=== PATIENT | male | born 1955 | race Caucasian/White ===

== ENCOUNTER → 2021-03-05 08:32 | Outpatient (CLI) | payer MEDICARE, OTHER, SELFPAY ==
[2021-03-05 09:40] LABS: Absolute Lymphocyte Count 2.92 X10^3/uL (0.83-4.51); Absolute Neutrophil Count 8.1 X10^3/uL (2.0-7.7); Basophil# 0.07 X10^3/uL; Basophil% 0.5 % (0-1); Eosinophil# 0.42 X10^3/uL; Eosinophils% 3.3 % (0-5); Hematocrit 45.8 % (40-54); Hemoglobin 15.2 g/dL (13.0-16.5); Lymphocyte # 2.92 X10^3/ul (0.83-4.51); Lymphocyte % 22.8 % (19-41); Mean Corp Hgb Conc 33.2 g/dL (32-36); Mean Corpuscular Hgb 33.2 pg (27.0-32.0); Monocyte# 1.25 X10^3/uL; Monocyte% 9.8 % (0-10); NRBC Flagged by Analyzer 0 % (0-5); Neutrophil % 63.3 % (47-70); Platelet Count 340 K/mm3 (150-450); RBC Distribution Width CV 16.2 % (11.6-14.6); RBC Distribution Width SD 59.3 fl (35.1-43.9); Red Blood Count 4.58 M/mm3 (4.6-6.2); White Blood Count 12.8 K/mm3 (4.4-11.0)
[2021-03-05 09:50] LABS: Erythrocyte Sedimentation Rate 34 mm/hr (0-20)
[2021-03-05 10:06] LABS: CRP 8.07 mg/L (0.0-3.0)
== END ==
PROVIDERS: PCP Internal Medicine; Visit Provider Physician Assistant
DX: Z96.641 Presence of right artificial hip joint (principal)
CPT/HCPCS: 36415; 85025; 85652; 86140

== ENCOUNTER 2021-03-15 18:14 | Observation (INO) | payer MEDICARE, OTHER, SELFPAY ==
[2021-03-15 18:15] VITALS: BP 112/61; PULSE 59; RESP 16; TEMP 37.4; O2SAT 95; BMI 25.3
--- NOTE | 2021-03-15 19:25 | RAD_ITS ---
STUDY: X-RAY - PELVIS AND RIGHT HIP REASON FOR EXAM: Male, 65 years old. Pain TECHNIQUE: 3 views of the pelvis and hip. COMPARISON: None. FINDINGS: There is a non-specific bowel gas pattern. Normal visualized soft tissue structures. Normal bilateral iliac wings, sacroiliac joints and visualized sacrum. Normal bilateral superior and inferior pubic rami. Normal pubic symphysis. Normal bilateral ischial tuberosities. There is a right hip prosthesis in place. No acute bony injury. RAD/HIP, UNI W/ Pelvis 2-3 Views IMPRESSION: No acute bony injury of the pelvis and hip. Electronically Signed: Mamadou Larios DO at 21:37 EST Tel [phone], Service support ,
--- NOTE | 2021-03-15 19:26 | EX.ED.DYSGE1 ---
HPI History of Present Illness Chief Complaint: Lower Extremity Injury Informant: patient Onset/Context/Timing Onset: Weeks Current Severity: Moderate Maximum Severity: Moderate Narrative Narrative: Patient presents secondary to right hip pain. He has an artificial hip on the right [place] [address] Terry. Patient states 3 weeks ago his hip popped out and spontaneously reduced. He has had pain since that time. He was seen by Bijan Collado at [facility]. Lab work was obtained and he was written for tramadol. He has an appointment to go back and see them on the . Patient reports worsened pain today and difficulty with any ambulation. Pain is now shooting down into his thigh and even down into his calf. He believes he has a pinched nerve. He does live alone. He tried tramadol without any improvement. [facility] Medical History A-fib CAD (coronary artery disease) Diabetes HTN (hypertension) Hyperlipidemia Pancreatitis Home Medications aspirin 81 mg PO DAILY@0800 11/12/14 [History Last Taken Unknown] metformin 500 mg PO BIDCM 11/12/14 [History Last Taken Unknown] niacin 500 mg PO DAILY 11/12/14 [History Last Taken Unknown] nitroglycerin 0.4 mg SUBLINGUAL Q5M PRN 11/12/14 [History Last Taken Unknown] paroxetine HCl [Paxil] 40 mg PO DAILY 11/12/14 [History Last Taken Unknown] trazodone 50 mg PO QHS 11/12/14 [History Last Taken Unknown] insulin aspart U-100 [Novolog Flexpen U-100 Insulin] See Protocol SUBCUT ACHS 11/15/14 [History Last Taken Unknown] multivitamin with folic acid [Thera] 1 tab PO DAILYCM #30 tablet 11/15/14 [Rx Last Taken Unknown] enoxaparin 40 mg SUBCUT DAILY@0600 #4 syringe 11/19/14 [Rx Last Taken Unknown] fentanyl 50 mcg TRANSDERM. Q3D #3 patch 11/19/14 [Rx Last Taken Unknown] ferrous sulfate 325 mg PO BIDCM #60 tablet 11/19/14 [Rx Last Taken Unknown] hydrocodone-acetaminophen 1 - 2 tab PO Q4H PRN PRN #30 tablet 11/19/14 [Rx Last Taken Unknown] menthol-zinc oxide [Calmoseptine] 1 applic TOPICAL BID@0600,2200 #0 tube 11/19/14 [Rx Last Taken Unknown] metoprolol tartrate 12.5 mg PO BID #30 tablet 11/19/14 [Rx Last Taken Unknown] nicotine 21 mg TRANSDERM. DAILY #20 patch 11/19/14 [Rx Last Taken Unknown] sennosides-docusate sodium [Stool Softener-Stimulant Laxat] 2 tab PO BID #0 tablet 11/19/14 [Rx Last Taken Unknown] tramadol 50 mg PO Q6H PRN PRN 03/15/21 [History Last Taken Unknown] Allergy/AdvReac Type Severity Reaction Status Date / Time celecoxib [From Celebrex] Allergy Other Verified 03/15/21 18:18 Penicillins Allergy Rash Verified 03/15/21 18:18 Surgical History S/P hip replacement Stented coronary artery Social History Smoking Status: Current every day smoker tobacco type: cigarettes ROS ROS ED Constitutional Constitutional ED: Denies chills or fever(s) Eyes Eyes: Denies change in vision ENT ENT ED: Denies sore throat Cardiovascular Cardiovascular: Denies chest pain Respiratory/Chest Respiratory/Chest: Denies cough or dyspnea Gastrointestinal Gastrointestinal: Denies abdominal pain, diarrhea, nausea or vomiting Genitourinary Genitourinary ED: Denies dysuria Musculoskeletal Musculoskeletal: Reports arthralgias; Denies back pain Integumentary Denies rash Neurologic Neurologic: Reports paresthesias; Denies headache(s) Psychiatric Psychiatric: Denies anxiety or depression Allergic/Immunologic Allergic/Immunologic ED: Denies urticaria EXAM Physical Exam Const Vital Signs: 03/15/21 18:15 03/15/21 21:17 Temperature 99.3 F H Temperature Source Temporal Pulse Rate 59 L 79 Respiratory Rate 16 18 Blood Pressure 112/61 118/65 Blood Pressure Mean 78 82 Pulse Ox 95 99 Oxygen Delivery Method Room Air Room Air Positive well nourished and well developed General Appearance ED: well developed HEENT Reports normocephalic and head/scalp atraumatic Eyes PERRL and EOMs intact bilaterally Neck supple Chest Wall inspection of chest normal and palpation of chest normal Resp normal respiratory effort and clear to auscultation bilaterally Cardio regular rate and regular rhythm GI normal to inspection, nondistended, normoactive bowel sounds and non-tender Palpation: soft Extremity normal to inspection Extremity Narrative: Tenderness over the greater trochanter of the right hip. No significant leg edema noted. Strong distal pulses. Neuro oriented x3 Sensorium / Orientation: alert Psych mental status grossly normal Skin no rashes or lesions noted MDM MDM MDM Narrative Medical decision making narrative: Lab work obtained. Pelvis and hip x-rays ordered. Morphine, Zofran, prednisone. Lab Data Attestation: I reviewed the patient's lab results. Labs: Laboratory Results - last 24 hr 03/15/21 03/15/21 19:50 19:50 WBC 14.8 H RBC 4.77 Hgb 15.5 Hct 46.6 MCV 97.7 H MCH 32.5 H MCHC 33.3 RDW Std Deviation 57.4 H RDW Coeff of Angel 15.9 H Plt Count 361 MPV 10.5 Immature Gran % (Auto) 0.300 Neut % (Auto) 63.3 Lymph % (Auto) 24.5 [place] % (Auto) 9.6 Eos % (Auto) 1.7 Baso % (Auto) 0.6 Absolute Neuts (auto) 9.4 H Absolute Lymphs (auto) 3.64 Nucleated RBC % 0 Sodium 136 Potassium 5.0 Chloride 104 Carbon Dioxide 25.0 Anion Gap 7 BUN 18 Creatinine 1.04 Estim Creat Clear Calc 78.96 Est GFR (MDRD) Af Amer 92 Est GFR (MDRD) Non-Af 76 BUN/Creatinine Ratio 17.3 Glucose 113 H Calcium 9.7 Radiography Diagnostic Testing: Clinical Impression(s) from Imaging Studies Hip/Pelvis X-Ray 03/15/21 19:25 IMPRESSION: No acute bony injury of the pelvis and hip. Electronically Signed: Mamadou Larios DO at 21:37 EST Tel [phone], Service support , Treatment and Re-Evaluation Comments:: X-rays reveal good position of hardware. No acute findings noted. Lab work largely unremarkable, but does have mild elevation in white count. No left shift. On repeat evaluation patient states he is more comfortable but still has significant pain and is unable to stand up and walk. I will speak with hospitalist regarding admission for observation and physical therapy. I feel his symptoms are more consistent with sciatica with possible early gout at the ankle with some mild erythema medially. Discharge Plan Triage Chief Complaint: Lower Extremity Injury ED Provider: Tanesha Balbuena Dx/Rx/DC Orders Clinical Impression: Sciatica Prescriptions: No Action metformin 500 MG tablet 500 mg PO BIDCM RF: 0 trazodone 50 MG tablet 50 mg PO QHS RF: 0 niacin 500 MG tablet extended release 24 hr 500 mg PO DAILY RF: 0 nitroglycerin 0.4 MG tablet 0.4 mg sublingual Q5M PRN (Reason: Chest Pain) RF: 0 aspirin 81 MG Tab.Chew 81 mg PO DAILY@0800 RF: 0 paroxetine HCl [Paxil] 40 MG tablet 40 mg PO DAILY RF: 0 multivitamin with folic acid [Thera] 1 TABLET tablet 1 tab PO DAILYCM Qty: 30 RF: 0 insulin aspart U-100 [Novolog Flexpen U-100 Insulin] 100 UNITS/ML Flexpen See Protocol units subcut ACHS RF: 0 fentanyl 50 MCG patch 50 mcg TRANSDERM. Q3D Qty: 3 RF: 0 hydrocodone-acetaminophen 1 TABLET tablet 1 - 2 tab PO Q4H PRN PRN (Reason: Moderate Pain (4-6/10)) Qty: 30 RF: 0 sennosides-docusate sodium [Stool Softener-Stimulant Laxat] 1 TABLET tablet 2 tab PO BID Qty: 0 RF: 0 enoxaparin 40 MG/0.4 ML syringe 40 mg subcut DAILY@0600 Qty: 4 RF: 0 metoprolol tartrate 25 MG tablet 12.5 mg PO BID Qty: 30 RF: 0 menthol-zinc oxide [Calmoseptine] 1 APPLIC Tube 1 applic topical BID@0600,2200 Qty: 0 RF: 0 ferrous sulfate 325 MG tablet 325 mg PO BIDCM Qty: 60 RF: 0 nicotine 21 MG patch 21 mg TRANSDERM. DAILY Qty: 20 RF: 0 tramadol 50 mg tablet 50 mg PO Q6H PRN PRN (Reason: Pain) RF: 0 Primary Care Provider: Eb Lennon Referrals: Eb Lennon MD [Primary Care Provider] - Disposition Disposition: Acute Care [facility]
[2021-03-15] MEDS: Morphine 4 MG/ML Syringe IV (19:47)
[2021-03-15] MEDS: Ondansetron 4 MG/2 ML Vial IV (19:47)
[2021-03-15] MEDS: predniSONE 20 MG Tablet 40 MG PO (19:48)
[2021-03-15 20:03] LABS: Absolute Lymphocyte Count 3.64 X10^3/uL (0.83-4.51); Absolute Neutrophil Count 9.4 X10^3/uL (2.0-7.7); Basophil# 0.09 X10^3/uL; Basophil% 0.6 % (0-1); Eosinophil# 0.25 X10^3/uL; Eosinophils% 1.7 % (0-5); Hematocrit 46.6 % (40-54); Hemoglobin 15.5 g/dL (13.0-16.5); Lymphocyte # 3.64 X10^3/ul (0.83-4.51); Lymphocyte % 24.5 % (19-41); Mean Corp Hgb Conc 33.3 g/dL (32-36); Mean Corpuscular Hgb 32.5 pg (27.0-32.0); Mean Corpuscular Volume 97.7 fL (80-94); Mean Platelet Vol. 10.5 fl (6.2-12.0); Monocyte# 1.43 X10^3/uL; Monocyte% 9.6 % (0-10); NRBC Flagged by Analyzer 0 % (0-5); Neutrophil # 9.37 X10^3/uL (2.7-7.7); Neutrophil % 63.3 % (47-70); Platelet Count 361 K/mm3 (150-450); RBC Distribution Width CV 15.9 % (11.6-14.6); RBC Distribution Width SD 57.4 fl (35.1-43.9); Red Blood Count 4.77 M/mm3 (4.6-6.2); White Blood Count 14.8 K/mm3 (4.4-11.0)
[2021-03-15 20:20] LABS: Anion Gap 7 (5-15); BUN 18 mg/dL (7-18); BUN/Creat Ratio 17.3 RATIO (10-20); Calcium,Total 9.7 mg/dL (8.5-10.1); Chloride 104 mmol/L (98-107); Creatinine, Serum 1.04 mg/dL (0.70-1.30); EST Glomerular Filtration Rate 76 mL/min (>60); Est Glom Filt Rate - Afr Amer 92 mL/min (>60); Estimated Creatinine Clearance 78.96 ml/min; Glucose 113 mg/dL (74-106); Sodium Level 136 mmol/L (136-145)
[2021-03-15 21:17] VITALS: BP 118/65; PULSE 79; RESP 18; O2SAT 99
--- NOTE | 2021-03-15 22:33 | PCM.HP.STD ---
HPI - General HPI Narrative ILIANA FLETCHER, is a 65 M who presents the emergency room with chief complaint of severe pain with ambulation. Patient has a significant past medical history of right hip replacement in 2014 and states that 3 weeks ago his joint slipped out of place and spontaneously reduced itself. Since that time he has been experiencing significant pain radiating down his right side of his leg all the way to his medial ankle. Today pain became so bad he required a walker to assist him around his house and that it became even worse he states. Patient has no chest pain shortness of breath fevers or chills nausea vomiting diarrhea. White count is 14,000 but there is no source of infection identified and he has no complaints that would be consistent with an infection at this time. X-ray of the hip is unremarkable for right hip arthroplasty. Patient has seen time Jina it was to orthopedic and has a follow-up appointment scheduled. Patient will be admitted for pain and difficulty with ambulation and physical therapy will be consulted to assist with a program to get him discharged home safely. [facility] Medical History A-fib CAD (coronary artery disease) Diabetes HTN (hypertension) Hyperlipidemia Pancreatitis Home Medications aspirin 81 mg PO DAILY@0800 11/12/14 [History Last Taken Unknown] metformin 500 mg PO BIDCM 11/12/14 [History Last Taken Unknown] niacin 500 mg PO DAILY 11/12/14 [History Last Taken Unknown] nitroglycerin 0.4 mg SUBLINGUAL Q5M PRN 11/12/14 [History Last Taken Unknown] paroxetine HCl [Paxil] 40 mg PO DAILY 11/12/14 [History Last Taken Unknown] trazodone 50 mg PO QHS 11/12/14 [History Last Taken Unknown] insulin aspart U-100 [Novolog Flexpen U-100 Insulin] See Protocol SUBCUT ACHS 11/15/14 [History Last Taken Unknown] multivitamin with folic acid [Thera] 1 tab PO DAILYCM #30 tablet 11/15/14 [Rx Last Taken Unknown] enoxaparin 40 mg SUBCUT DAILY@0600 #4 syringe 11/19/14 [Rx Last Taken Unknown] fentanyl 50 mcg TRANSDERM. Q3D #3 patch 11/19/14 [Rx Last Taken Unknown] ferrous sulfate 325 mg PO BIDCM #60 tablet 11/19/14 [Rx Last Taken Unknown] hydrocodone-acetaminophen 1 - 2 tab PO Q4H PRN PRN #30 tablet 11/19/14 [Rx Last Taken Unknown] menthol-zinc oxide [Calmoseptine] 1 applic TOPICAL BID@0600,2200 #0 tube 11/19/14 [Rx Last Taken Unknown] metoprolol tartrate 12.5 mg PO BID #30 tablet 11/19/14 [Rx Last Taken Unknown] nicotine 21 mg TRANSDERM. DAILY #20 patch 11/19/14 [Rx Last Taken Unknown] sennosides-docusate sodium [Stool Softener-Stimulant Laxat] 2 tab PO BID #0 tablet 11/19/14 [Rx Last Taken Unknown] tramadol 50 mg PO Q6H PRN PRN 03/15/21 [History Last Taken Unknown] Allergy/AdvReac Type Severity Reaction Status Date / Time celecoxib [From Celebrex] Allergy Other Verified 03/15/21 18:18 Penicillins Allergy Rash Verified 03/15/21 18:18 Surgical History S/P hip replacement Stented coronary artery Social History Smoking Status: Current every day smoker tobacco type: cigarettes ROS Constitutional Constitutional: Denies chills or fever(s) ENT HEENT: Denies abnormal hearing Cardiovascular Cardiovascular: Denies chest pain Respiratory/Chest Respiratory/Chest: Denies cough or shortness of breath at rest Gastrointestinal Gastrointestinal: Denies abdominal pain Genitourinary Genitourinary: Denies dysuria Musculoskeletal Musculoskeletal: Reports extremity pain and joint pain; Denies back pain Neurologic Neurologic: Reports abnormal gait Psychiatric Psychiatric: Denies anxiety Vital Signs Vital Signs Vital Signs: 03/15/21 18:15 03/15/21 21:17 Temperature 99.3 F H Temperature Source Temporal Pulse Rate 59 L 79 Respiratory Rate 16 18 Blood Pressure 112/61 118/65 Blood Pressure Mean 78 82 Pulse Ox 95 99 Oxygen Delivery Method Room Air Room Air Weight Weight: 192 lb 3.889 oz Body Mass Index (BMI) 25.3 Physical Exam Const oriented x3 HEENT head/scalp atraumatic Eyes PERRL and EOMs intact bilaterally Neck supple Lymph Lymphatic: no lymphadenopathy noted Resp normal respiratory effort Cardio regular rate GI normal to inspection, nondistended, normoactive bowel sounds Extremity Extremity Narrative: Point tenderness in the right iliac crest radiating to right knee laterally and then traversing to the medial calf and medial ankle. There is no deformity. However range of motion of right hip with both internal and external rotation and due to significant pain. Skin Rashes: no rashes Neuro CN's II-XII intact bilaterally Psych affect normal Results Lab / Micro Data Result Diagrams: 03/15/21 19:50 03/15/21 19:50 Labs: Laboratory Results - last 24 hr 03/15/21 19:50: WBC 14.8 H, RBC 4.77, Hgb 15.5, Hct 46.6, MCV 97.7 H, MCH 32.5 H, MCHC 33.3, RDW Std Deviation 57.4 H, RDW Coeff of Angel 15.9 H, Plt Count 361, MPV 10.5, Immature Gran % (Auto) 0.300, Neut % (Auto) 63.3, Lymph % (Auto) 24.5, [place] % (Auto) 9.6, Eos % (Auto) 1.7, Baso % (Auto) 0.6, Absolute Neuts (auto) 9.4 H, Absolute Lymphs (auto) 3.64, Nucleated RBC % 0 03/15/21 19:50: Sodium 136, Potassium 5.0, Chloride 104, Carbon Dioxide 25.0, Anion Gap 7, BUN 18, Creatinine 1.04, Estim Creat Clear Calc 78.96, Est GFR (MDRD) Af Amer 92, Est GFR (MDRD) Non-Af 76, BUN/Creatinine Ratio 17.3, Glucose 113 H, Calcium 9.7 Radiology Impression Hip/Pelvis X-Ray 03/15/21 19:25 IMPRESSION: No acute bony injury of the pelvis and hip. Electronically Signed: Mamadou Larios DO at 21:37 EST Tel [phone], Service support , Assessment & Plan Assessment/Plan (1) Sciatica: (2) HTN (hypertension): (3) Diabetes: PLAN: 1. Right hip pain/sciatica?admit for observation to general medical floor, morphine 2 mg IV every 3 hours as needed pain, Tylenol 650 p.o. 6 hours as needed pain, consult physical therapy for evaluation and treatment in the morning for discharge plan is home safely. 2. Hypertension?continue routine medication 3. Diabetes?low-dose sliding scale insulin at this time 4. DVT prophylaxis?low molecular weight heparin Charges/Coding Visit Charges OBSV E&M: 05023 Initial observation care L2
[2021-03-15 22:34] VITALS: BP 105/62; PULSE 60; RESP 16; TEMP 36.3; O2SAT 99
[2021-03-15 23:28] VITALS: BMI 24.0
[2021-03-15 23:30] VITALS: BP 115/71; PULSE 58; RESP 18; TEMP 36.7; O2SAT 95
[2021-03-16] MEDS: Morphine 2 MG/ML Syringe IV ×2 (00:02→11:37)
--- NOTE | 2021-03-16 00:14 | PCS.PANDOC ---
PANDEMIC DOCUMENTATION INITIATED: Date: 11/09/2020 Time: 1900 Emergency documentation initiated 03/16/21 @ 0000
[2021-03-16 00:24] VITALS: O2SAT 95
[2021-03-16 06:43] VITALS: BP 147/79; PULSE 66; RESP 16; TEMP 36.6; O2SAT 94
[2021-03-16] MEDS: Insulin Lispro 100 UNIT/ML INSULN.PEN SC ×3 (06:49→21:01)
[2021-03-16 06:50] LABS: Bedside Glucose 203 mg/dL (70-110)
[2021-03-16] MEDS: Acetaminophen 325 MG Tablet 650 MG PO (08:19)
[2021-03-16] MEDS: Paroxetine 20 MG Tablet 40 MG PO (08:20)
[2021-03-16 08:25] VITALS: BP 138/73; PULSE 73; RESP 16; TEMP 37; O2SAT 100
[2021-03-16 11:46] LABS: Bedside Glucose 196 mg/dL (70-110)
--- NOTE | 2021-03-16 13:47 | PN.HOSP_ITS ---
Subjective Subjective Follow-up on acute hip pain: Patient was seen and examined. He stated that his pain is fairly controlled. Denied any dizziness or palpitations. Objective Data Objective Data Vital Signs: Vital Signs Temp Pulse Resp BP Pulse Ox 98.6 F 73 16 138/73 H 100 03/16/21 08:25 03/16/21 08:25 03/16/21 08:25 03/16/21 08:25 03/16/21 08:25 Oxygen Delivery Method Room Air Weight: 82.4 kg Body Mass Index (BMI) 24.0 Intake & Output: Intake and Output for Last 24 Hours 03/14/21 03/15/21 03/16/21 23:59 23:59 23:59 Intake Total 700 / 700 Output Total 1125 / 1125 Balance -425 / -425 Lab / Micro Data Result Diagrams: 03/15/21 19:50 03/15/21 19:50 Labs: Laboratory Results - last 24 hr 03/15/21 19:50: WBC 14.8 H, RBC 4.77, Hgb 15.5, Hct 46.6, MCV 97.7 H, MCH 32.5 H , MCHC 33.3, RDW Std Deviation 57.4 H, RDW Coeff of Angel 15.9 H, Plt Count 361, MPV 10.5, Immature Gran % (Auto) 0.300, Neut % (Auto) 63.3, Lymph % (Auto) 24.5, [place] % (Auto) 9.6, Eos % (Auto) 1.7, Baso % (Auto) 0.6, Absolute Neuts (auto) 9.4 H, Absolute Lymphs (auto) 3.64, Nucleated RBC % 0 03/15/21 19:50: Sodium 136, Potassium 5.0, Chloride 104, Carbon Dioxide 25.0, Anion Gap 7, BUN 18, Creatinine 1.04, Estim Creat Clear Calc 78.96, Est GFR (MDRD) Af Amer 92, Est GFR (MDRD) Non-Af 76, BUN/Creatinine Ratio 17.3, Glucose 113 H, Calcium 9.7 03/16/21 06:45: POC Glucose 203 H 03/16/21 11:36: POC Glucose 196 H Radiography Diagnostic Testing: Radiology Impression Hip/Pelvis X-Ray 03/15/21 19:25 IMPRESSION: No acute bony injury of the pelvis and hip. Electronically Signed: Mamadou Larios DO at 21:37 EST Tel [phone], Service support , Physical Exam Narrative Physical exam: General: Alert, Oriented x3, Cooperative, No apparent distress, Well developed HEENT: Atraumatic Oral: Moist Mucosa Neck: Supple Lungs: Clear to auscultation Cardiovascular: HS I+II, regular, no murmurs Abdomen: Bowel Sounds Present, Soft, Non Tender Extremities: No edema, tenderness over right hip Assessment & Plan Assessment/Plan (1) Sciatica: QUALIFIERS: Laterality: right Qualified Code(s): M54.31 - Sciatica, right side (2) HTN (hypertension): QUALIFIERS: Hypertension type: primary hypertension Qualified Code(s): I10 - Essential (primary) hypertension (3) Diabetes: QUALIFIERS: Diabetes mellitus type: type 2 Diabetes mellitus complication status: with other specified complication Diabetes mellitus adjunct faculty for medical terminology insulin use: with adjunct faculty for medical terminology use Qualified Code(s): E11.69 - Type 2 diabet es mellitus with other specified complication; Z79.4 - exterminator (current) use of insulin PLAN: 1. Acute right hip, slightly improved X-ray of the pelvis was negative for acute fractures Right hip prosthesis in place Consult orthopedics for recommendations PT and OT to evaluate and treat 2. Hypertension, BP controlled, continue to monitor 3. Type II DM, blood sugars are controlled, continue on insulin sliding scale 4. DVT prophylaxis?low molecular weight heparin Charges/Coding Visit Charges Inpatient E&M: 92479 Subs Hosp L2
[2021-03-16 14:00] VITALS: BP 150/60; PULSE 62; RESP 16; TEMP 36.5; O2SAT 97
[2021-03-16 14:08] VITALS: O2SAT 98
--- NOTE | 2021-03-16 15:30 | CASEMGMT ---
CECILIA CM in to discuss KERNS form with patient. RN CM explained KERNS form, patient voiced understanding. Pt signed form and filed in chart. Pt provided with a copy of signed KERNS form. Patient had no further questions or concerns at this time.
--- NOTE | 2021-03-16 15:58 | CT_ITS ---
STUDY: CT RIGHT HIP WITHOUT CONTRAST REASON FOR EXAM: Male, 65 years old. Patient had right hip replacement 5 yr ago. Popped-out 3 weeks ago, pain ever since RADIATION DOSAGE (If Supplied By Facility): CTDIvol = ( 13.40 ) mGy, DLP = ( 515.53 ) mGycm Individualized dose optimization techniques were used for this CT. ? TECHNIQUE: Transaxial CT imaging of the hip (pelvis) was performed. Coronal and sagittal images were reformatted. COMPARISON: Pelvic x-ray dated March 15, 2021 FINDINGS: Stable right hip prosthesis without demonstrated complications. No evidence of hardware loosening or displacement. No cortical erosion or bony destruction is present. No visualized acute fractures. The hardware is intact. 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 Fatty atrophy is seen in the right gluteus barbara muscle. Normal remaining muscles. No visualized aggressive process. The internal structures of the pelvis are unremarkable. Normal acetabulum. Normal hip joint. Normal visualized superior and inferior pubic rami and ischial tuberosities. CT/Extremity Lower without Contra IMPRESSION: 1. No demonstrated acute or significant process of the right hip. Electronically Signed: Teddy Chavez MD at 20:49 EST , Service support ,
[2021-03-16 16:11] LABS: Erythrocyte Sedimentation Rate 41 mm/hr (0-20)
[2021-03-16 17:06] LABS: Bedside Glucose 138 mg/dL (70-110)
[2021-03-16 20:58] VITALS: BP 146/85; PULSE 64; RESP 16; TEMP 36.6; O2SAT 98
[2021-03-16] MEDS: traZODone 50 MG Tablet PO (21:00)
[2021-03-16 21:06] LABS: Bedside Glucose 202 mg/dL (70-110)
[2021-03-16] MEDS: oxyCODONE 5 MG Tablet PO (21:09)
[2021-03-17 03:51] VITALS: BP 101/55; PULSE 63; RESP 18; TEMP 36.4; O2SAT 96
[2021-03-17] MEDS: oxyCODONE 5 MG Tablet PO (03:54)
--- NOTE | 2021-03-17 06:21 | CONS.ORTHO ---
HPI Consult Data Date of Consult: 03/17/21 HPI Narrative HPI Narrative: ILIANA FLETCHER, is a 65 M who presents with right hip pain. In 2014, Dr. Terry performed a hemiarthroplasty on his right hip. He denies difficulty with it until approximately 3 weeks ago when it dislocated. He saw my PA,carri Nicole, last week and was having minimal pain. He was admitted on the with intractable right hip and leg pain. He reports pain from the hip all the way down his leg to the ankle. He denies fever, chills, nausea, vomiting or recent infection elsewhere. [facility] Medical History (Updated 03/16/21 @ 13:[address] Joya Bryant MD) A-fib CAD (coronary artery disease) COPD (chronic obstructive pulmonary disease) Diabetes HTN (hypertension) Hyperlipidemia Kidney stones Pancreatitis Home Medications aspirin 81 mg PO DAILY@0800 11/12/14 [History Last Taken Unknown] niacin 500 mg PO QHS 11/12/14 [History Last Taken Unknown] nitroglycerin 0.4 mg SUBLINGUAL Q5M PRN 11/12/14 [History Last Taken Unknown] paroxetine HCl [Paxil] 40 mg PO DAILY 11/12/14 [History Last Taken Unknown] trazodone 50 mg PO QHS 11/12/14 [History Last Taken Unknown] clopidogrel 75 mg PO DAILY 03/16/21 [History Last Taken Unknown] empagliflozin [Jardiance] 25 mg PO DAILY 03/16/21 [History Last Taken Unknown] glimepiride 4 mg PO BID 03/16/21 [History Last Taken Unknown] glucosamine sulfate [Glucosamine] 1 PO DAILY 03/16/21 [History Last Taken Unknown] insulin glargine [Lantus Solostar U-100 Insulin] 10 unit SUBCUT QPM 03/16/21 [History Last Taken Unknown] lisinopril 10 mg PO BID 03/16/21 [History Last Taken Unknown] metoprolol tartrate 25 mg PO BID 03/16/21 [History Last Taken Unknown] sitagliptin [Januvia] 100 mg PO DAILY 03/16/21 [History Last Taken Unknown] Allergy/AdvReac Type Severity Reaction Status Date / Time celecoxib [From Celebrex] Allergy Other Verified 03/15/21 18:18 Penicillins Allergy Rash Verified 03/15/21 18:18 Surgical History (Updated 03/15/21 @ 23:49 by Tara Seo) History of cholecystectomy S/P hip replacement Stented coronary artery Social History Smoking Status: Current every day smoker tobacco type: cigarettes Vital Signs Vital Signs Vital Signs: 03/16/21 06:43 03/16/21 08:25 03/16/21 14:00 Temperature 97.9 F 98.6 F 97.7 F L Temperature Source Oral Oral Oral Pulse Rate 66 73 62 Respiratory Rate 16 16 16 Blood Pressure 147/79 H 138/73 H 150/60 H Blood Pressure Mean 101 94 90 Blood Pressure Source Monitor Monitor Monitor Blood Pressure Position Semi-Fowlers Semi-Fowlers Sitting Blood Pressure Location Right Arm Right Arm Left Arm Pulse Ox 94 100 97 Oxygen Delivery Method Room Air Room Air Room Air 03/16/21 14:08 03/16/21 20:58 03/17/21 03:51 Temperature 97.8 F 97.6 F L Temperature Source Oral Oral Pulse Rate 64 63 Respiratory Rate 16 18 Blood Pressure 146/85 H 101/55 L Blood Pressure Mean 105 70 Blood Pressure Source Monitor Monitor Blood Pressure Position Semi-Fowlers Semi-Fowlers Blood Pressure Location Right Arm Right Arm Pulse Ox 98 98 96 Oxygen Delivery Method Room Air Room Air Room Air Weight Weight: 181 lb 10.574 oz Body Mass Index (BMI) 24.0 Physical Exam Const alert and oriented x3 General Appearance: cooperative Extremity normal capillary refill, no clubbing, cyanosis or edema and no calf tenderness Extremity Narrative: Leg lengths equal. ROM of the right hip well tolerated Skin no rashes or lesions noted Wound Narrative: intact without redness or drainage Neuro no sensory deficits noted Lab / Micro Data Result Diagrams: 03/15/21 19:50 03/15/21 19:50 Labs: Laboratory Results - last 24 hr 03/15/21 19:50: ESR 41 H 03/15/21 19:50: C-React Prot Ext Range 15.20 H 03/16/21 06:45: POC Glucose 203 H 03/16/21 11:36: POC Glucose 196 H 03/16/21 16:56: POC Glucose 138 H 03/16/21 21:00: POC Glucose 202 H Radiology Impression Lower Extremity CT 03/16/21 15:58 IMPRESSION: 1. No demonstrated acute or significant process of the right hip. Electronically Signed: Teddy Chavez MD at 20:49 EST , Service support , Assessment & Plan Assessment/Plan (1) Sciatica: QUALIFIERS: Laterality: right Qualified Code(s): M54.31 - Sciatica, right side PLAN: Work with PT this morning with WBAT on RLE Pain control per hospitalist D/c when stable with follow up with my partner Dr. Shoemaker who did a fellowship regarding TJR
[2021-03-17 06:50] LABS: Bedside Glucose 124 mg/dL (70-110)
[2021-03-17 07:26] VITALS: O2SAT 96
[2021-03-17 07:54] VITALS: BP 118/76; PULSE 52; RESP 18; TEMP 36.6; O2SAT 97
--- NOTE | 2021-03-17 07:56 | PCS.PANDOC ---
PANDEMIC DOCUMENTATION INITIATED: Date: 11/09/2020 Time: 190
[2021-03-17] MEDS: Paroxetine 20 MG Tablet 40 MG PO (08:00)
--- NOTE | 2021-03-17 10:20 | RAD_ITS ---
STUDY: X-RAY - RIGHT ANKLE REASON FOR EXAM: Right ankle swelling, right ankle injury. TECHNIQUE: 3 view(s) of the ankle. COMPARISON: None. FINDINGS: Normal visualized distal tibia and fibula. Normal medial and lateral malleoli. Normal tibiotalar articulation and ankle mortise. There is a dorsal spur of the neck of the talus. Otherwise, unremarkable visualized talus and calcaneus. The visualized subtalar, talonavicular, calcaneocuboid and tarsal articulations are normal. The soft tissue structures are unremarkable. RAD/Ankle min 3 Views IMPRESSION: No demonstrated right ankle fracture. Electronically Signed: Siddhartha Messer MD at 11:11 EST Tel , Service support ,
--- NOTE | 2021-03-17 11:37 | PCM.DC.SUM ---
Providers Date of Admission: 03/15/21 Date of Discharge: 03/17/21 Primary Care Physician: Dr. Eb Lennon MD Consultations 03/16/21 13:50 Consult: Orthopedics Routine Consulting Provider: Bud Strauss Reason for Consult: Right hip pain EMERGENT Consult: No MD Notified: Yes Date Notified: 03/16/21 Time Notified: 14:37 Method of Notification: Verbal Method of Consult:: In-Person Comments:: via telephone Reason For Visit: RIGHT HIP PAIN Diagnosis Discharge Diagnosis (1) Sciatica: Status: Acute Code(s): M54.30 - Sciatica, unspecified side Qualifiers: Laterality: right Qualified Code(s): M54.31 - Sciatica, right side (2) Hip pain, right: Status: Acute Code(s): M25.551 - Pain in right hip (3) DJD (degenerative joint disease): Status: Chronic Code(s): M19.90 - Unspecified osteoarthritis, unspecified site (4) HTN (hypertension): Status: Chronic Code(s): I10 - Essential (primary) hypertension Qualifiers: Hypertension type: primary hypertension Qualified Code(s): I10 - Essential (primary) hypertension (5) Diabetes: Status: Chronic Code(s): E11.9 - Type 2 diabetes mellitus without complications Qualifiers: Diabetes mellitus complication status: with other specified complication Diabetes mellitus shelter insulin use: with shelter use Diabetes mellitus type: type 2 Qualified Code(s): E11.69 - Type 2 diabetes mellitus with other specified complication; 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 (6) Leukocytosis: Status: Chronic Code(s): D72.829 - Elevated white blood cell count, unspecified Medications at Discharge Home Medications aspirin 81 mg PO DAILY@0800 11/12/14 niacin 500 mg PO QHS 11/12/14 nitroglycerin 0.4 mg SUBLINGUAL Q5M PRN 11/12/14 paroxetine HCl [Paxil] 40 mg PO DAILY 11/12/14 trazodone 50 mg PO QHS 11/12/14 Januvia 100 mg PO DAILY 03/16/21 Jardiance 25 mg PO DAILY 03/16/21 Lantus Solostar U-100 Insulin 10 unit SUBCUT QPM 03/16/21 clopidogrel 75 mg PO DAILY 03/16/21 glimepiride 4 mg PO BID 03/16/21 glucosamine sulfate [Glucosamine] 1 PO DAILY 03/16/21 lisinopril 10 mg PO BID 03/16/21 metoprolol tartrate 25 mg PO BID 03/16/21 nicotine 21 mg TRANSDERMAL DAILY 30 Days #30 ea 03/17/21 Hospital Course Operations None Procedures None Summary of Care Provided Minutes Spent on Discharge: 45 Hospital Course: 65-year-old male with past medical history of CAD, hypertension, type II DM who comes in with complaints of right hip pain. Patient has history of right hip replacement. He stated that his right hip joint slipped out of place but later spontaneously reduced itself. He complains of pain going down the right side of his leg all the way to the ankle. He has been using a walker for walking. X-ray of hip/pelvis did not show any acute fracture. Patient had recently seen by orthopedic surgery PA. Orthopedic surgery was consulted in this admission. CT of the right lower extremity was negative for acute fracture. Patient was seen by PT and OT. He had x-ray of the ankle that showed no acute fracture. He will follow-up with Dr. Shoemaker in the outpatient as well as his primary care doctor within 2 weeks. Physical Exam Narrative Physical exam: General: Alert, Oriented x3, Cooperative, No apparent distress, Well developed HEENT: Atraumatic Oral: Moist Mucosa Neck: Supple Lungs: Clear to auscultation Cardiovascular: HS I+II, regular, no murmurs Abdomen: Bowel Sounds Present, Soft, Non Tender Extremities: No edema, tenderness over right hip Weight / BMI Weight Weight: 82.4 kg Body Mass Index (BMI) 24.0 ABG / Lab / Microbiology Data Result Diagrams: 03/15/21 19:50 03/15/21 19:50 Laboratory: Laboratory Results - last 24 hr 03/15/21 19:50: ESR 41 H 03/15/21 19:50: C-React Prot Ext Range 15.20 H 03/16/21 11:36: POC Glucose 196 H 03/16/21 16:56: POC Glucose 138 H 03/16/21 21:00: POC Glucose 202 H 03/17/21 06:33: POC Glucose 124 H Radiography Diagnostic Testing: Radiology Impression Lower Extremity CT 03/16/21 15:58 IMPRESSION: 1. No demonstrated acute or significant process of the right hip. Electronically Signed: Teddy Chavez MD at 20:49 EST , Service support , Ankle X-Ray 03/17/21 10:20 IMPRESSION: No demonstrated right ankle fracture. Electronically Signed: Siddhartha Messer MD at 11:11 EST Tel , Service support , D/C Instructions Discharge Diet: 2000 Calorie Control Diet and 2000 mg Sodium Diet Meaningful Use Info Meaningful Use Diagnoses (Choose all that apply): None applicable Discharge Plan Admission Admit Date/Time: 03/15/21 22:52 Primary Reason for Your Visit: Acute right hip pain Attending Provider: Joya Bryant Primary Care Provider: Eb Lennon Consulting Providers: Bud Strauss Instructions Additional Instructions / Restrictions: Continue to bear weight on your right leg with your walker. Follow-up with Dr. Shoemaker in the outpatient. Follow-up with your primary care doctor within 2 weeks. Continue to monitor your blood sugar. Discharge Orders/Prescriptions Prescriptions: New nicotine 21 mg/24 hr Patch 24 Hour 21 mg transdermal DAILY 30 Days Qty: 30 RF: 0 Continued trazodone 50 MG tablet 50 mg PO QHS RF: 0 niacin 500 MG tablet extended release 24 hr 500 mg PO QHS RF: 0 nitroglycerin 0.4 MG tablet 0.4 mg sublingual Q5M PRN (Reason: Chest Pain) RF: 0 aspirin 81 MG tablet,chewable 81 mg PO DAILY@0800 RF: 0 paroxetine HCl [Paxil] 40 MG tablet 40 mg PO DAILY RF: 0 glucosamine sulfate [Glucosamine] 500 mg Tablet 1 PO DAILY RF: 0 clopidogrel 75 mg Tablet 75 mg PO DAILY RF: 0 lisinopril 10 mg Tablet 10 mg PO BID RF: 0 glimepiride 4 mg Tablet 4 mg PO BID RF: 0 metoprolol tartrate 25 mg Tablet 25 mg PO BID RF: 0 Januvia 100 mg Tablet 100 mg PO DAILY RF: 0 Lantus Solostar U-100 Insulin 100 unit/mL (3 mL) Insulin Pen 10 unit SUBCUT QPM RF: 0 Jardiance 25 mg Tablet 25 mg PO DAILY RF: 0 Referrals / Follow Up: Eb Lennon MD [Primary Care Provider] - Within 2 Weeks Andrea Shoemaker MD [STAFF PHYSICIAN] - Within 2 Weeks Disposition Disposition (needs filled in before D/C Order can be placed): Home, Self Care Charges/Coding Visit Charges Inpatient E&M: 32947 Disch Hosp
[2021-03-17] MEDS: Lisinopril 10 MG Tablet PO (11:58)
[2021-03-17] MEDS: Glimepiride 4 MG Tablet PO (11:58)
[2021-03-17 11:59] VITALS: PULSE 54
[2021-03-17] MEDS: LINAGLIPTIN 5 MG TABLET PO (11:59)
[2021-03-17] MEDS: Empagliflozin 25 MG Tablet PO (11:59)
[2021-03-17] MEDS: Clopidogrel Bisulfate 75 MG Tablet PO (11:59)
[2021-03-17] MEDS: Insulin Lispro 100 UNIT/ML INSULN.PEN SC (12:00)
[2021-03-17 12:05] LABS: Bedside Glucose 170 mg/dL (70-110)
--- NOTE | 2021-03-17 13:50 | CASEMGMT ---
CECILIA CM in to pt room. Pt states he does have a FWW at home but would like a new one. He thinks it has been more than 5 years since he has gotten one. Referral faxed to [facility] [place] at this time.
[2021-03-17 13:53] VITALS: BP 116/75; PULSE 56; RESP 18; TEMP 36.4; O2SAT 95
== END 2021-03-17 15:46 | disposition home or self-care (01) ==
LOC: ED 22:24 → MS3 22:37
PROVIDERS: Orthopaedic Surgery; Admitting Provider Family Medicine; Emergency Provider Emergency Medicine; PCP Internal Medicine; Visit Provider Internal Medicine
DX: M25.551 Pain in right hip (principal); M19.90 Unspecified osteoarthritis, unspecified site; I10 Essential (primary) hypertension; E11.9 Type 2 diabetes mellitus without complications; D72.829 Elevated white blood cell count, unspecified; E78.5 Hyperlipidemia, unspecified; M54.31 Sciatica, right side; I25.10 Atherosclerotic heart disease of native coronary artery without angina pectoris; I48.91 Unspecified atrial fibrillation; F17.210 Nicotine dependence, cigarettes, uncomplicated; Z96.641 Presence of right artificial hip joint; Z79.899 Other long term (current) drug therapy; Z79.4 Long term (current) use of insulin; Z79.82 Long term (current) use of aspirin; Z79.02 Long term (current) use of antithrombotics/antiplatelets; J44.9 Chronic obstructive pulmonary disease, unspecified
CPT/HCPCS: 73502; 73610; 73700; 80048; 82962; 85025; 85652; 86140; 96374; 96375; 96376; 97162; 99218; 99285; 99406; G0378; J2405

== ENCOUNTER 2021-04-21 10:07 | Outpatient (CLI) | payer MEDICARE, OTHER, SELFPAY ==
[2021-04-21] MEDS: Lidocaine 2% (5ml sdv) 5 ML VIAL.MPF INFILT (10:10)
--- NOTE | 2021-04-21 10:11 | RAD_ITS ---
PROCEDURE: Fluoroscopic guided right hip aspiration. DATE: 04/21/2021. INDICATION: Male, 66 years old. Worsening right hip pain following total hip replacement. PHYSICIAN: Carlos Urias M.D. ACCESS SITE: Right hip. NEEDLE: 22-gauge spinal needle. FLUOROSCOPY TIME (if supplied): (0:33) minutes/seconds. One image was obtained FINDINGS: The risks, benefits, and alternatives to the procedure were explained to the patient. The specific risks of bleeding, infection, and neurovascular injury were detailed and accepted. Witnessed informed consent was obtained. A 22-gauge spinal needle was positioned under radiographic fluoroscopic localization. No joint fluid was aspirated. Approximately 2 cc of [id number] was instilled for localization purposes. The patient tolerated the procedure well without any immediate complications. RAD/Inj/Asp [place] Should/Hip/Knee IMPRESSION: 1. Right hip aspiration. No fluid was aspirated. Electronically Signed: Carlos Urias MD at 11:04 EST ,
== END 2021-04-21 23:59 | disposition short-term general hospital (02) ==
PROVIDERS: PCP Internal Medicine; Referring Provider Specialist; Visit Provider Specialist
DX: M25.551 Pain in right hip (principal)
CPT/HCPCS: 20610; 77002; Q9967